=== PATIENT | male | born 1945 | race Caucasian/White ===

== ENCOUNTER 2017-07-16 09:16 | Observation (INO) ==
[2017-07-16] MEDS ORDERED: Ipratropium/Albuterol Neb 3 ML IH ONE (09:19)
[2017-07-16] MEDS ORDERED: methylPREDNISolone 125 MG/2 ML VIAL IVP ONE (09:20)
[2017-07-16] MEDS ORDERED: Azithromycin 500 MG in D5% in Water 250 ML IVPB ONE (09:20)
[2017-07-16] MEDS ORDERED: 0.9 % Sodium Chloride 1,000 ML IVC SCH ×2 (09:30→12:51)
--- NOTE | 2017-07-16 09:33 | Emergency Department Note ---
Disposition Clinical Impression: Mucopurulent chronic bronchitis, COPD (chronic obstructive pulmonary disease) Disposition: Admitted As Inpatient Condition: Fair Time of Disposition: 10:39 (manuel fonseca ) URI/Sore Throat HPI - General Chief Complaint: ED Upper Respiratory Infection Stated Complaint: cold sxs x week, sob, prod cough Time Seen by Provider: 07/16/17 09:18 Source: patient, family Mode of arrival: ambulatory Limitations: no limitations Nursing Notes Reviewed: Yes Vital Signs Reviewed: Yes - History of Present Illness HPI Narrative: Upper respiratory type symptoms for a week has been on Levaquin with no relief patient's having cough congestion shortness of breath abdominal bloating denies though any vomiting or any diarrhea he said seen his family physician denies any blurred vision double vision diarrhea numbness tingling weakness recent weight gain or weight loss all systems reviewed and otherwise negative Pt Subjective Complaint: fever, cough, flu symptoms, nasal congestion, other ( sputum) Duration: constant, gradually worsening Severity: moderate Severity scale (1-10): 7 Improves with: nothing Worsens with: nothing If sputum, description: watery, yellow Associated symptoms: Reports: fever, rhinorrhea, nasal congestion, sore throat, cough, shortness of breath. Denies: chills, voice changes, myalgias, diaphoresis, headache, stiff neck, chest pain, abdominal pain, nausea, vomiting , diarrhea, dysuria, rash, epistaxis, ear pain Treatments prior to arrival: acetaminophen, ibuprofen, antibiotics, other healthcare encounter for this problem - Related Data Home Medications Medication Instructions Recorded Confirmed Losartan [Cozaar] 12.5 mg PO DAILY 07/16/17 07/16/17 Omeprazole [PriLOSEC] 20 mg PO DAILY 07/16/17 07/16/17 Tamsulosin [Flomax] 0.4 mg PO DAILY 07/16/17 07/16/17 levoFLOXacin [Levaquin] 500 mg PO DAILY 07/16/17 07/16/17 Allergies Allergy/AdvReac Type Severity Reaction Status Date / Time No Known Allergies Allergy Verified 07/16/17 09:17 All systems ED: reviewed and negative except as stated. Review of Systems: As Per HPI Constitutional: Reports: weakness. Denies: fever, chills, weight change Eyes: Denies: eye pain, eye discharge ENT ED: Reports: throat pain, congestion. Denies: ear pain, dental pain Cardiovascular: Reports: dyspnea on exertion. Denies: chest pain, palpitations Respiratory: Reports: cough, dyspnea, wheezes, sputum production Gastrointestinal: Denies: abdominal pain, nausea, vomiting Genitourinary: Denies: dysuria, frequency Musculoskeletal: Reports: myalgia. Denies: back pain, neck pain Integumentary: Denies: rash, abrasion, lesions Neurological: Denies: headache, weakness Psychiatric: Denies: anxiety Endocrine: Denies: fatigue Hematological/Lymphatic: Denies: easy bleeding Allergic/Immunologic: Denies: facial swelling URI PMH - Past Medical History Medical history: Reports: COPD Physical Exam - General Limitations: no limitations General appearance: alert, in no apparent distress, anxious - Head Head exam: atraumatic, normocephalic, normal inspection - Eye Eye exam: Present: normal appearance, PERRL, EOMI - ENT ENT exam: normal exam, normal oropharynx, mucous membranes moist, TM's normal bilaterally, normal external ear exam, other (PND) - Neck Neck exam: Present: normal inspection, full ROM, trachea midline - Chest Chest inspection: Present: normal inspection, symmetric chest wall rise - Respiratory Respiratory exam: Present: wheezes, prolonged expiratory phase - Cardiovascular Cardiovascular exam: Present: regular rate, normal rhythm, normal heart sounds - Abdominal Exam Abdominal exam: Present: soft, Non-Tender, distention, normal bowel sounds. Absent: mass, pulsatile mass - Extremities Exam Extremities exam: Present: normal inspection, full ROM, normal capillary refill. Absent: tenderness, pedal edema, joint swelling, calf tenderness - Expanded Lower Extremity Exam Neurovascular/Tendon exam: Present: normal capillary refill, normal fine/light touch Gait: observed and normal - Back Exam Back exam: Present: normal inspection, full ROM. Absent: muscle spasm - Neurological Exam Neurological exam: Present: alert, oriented X3, CN II-XII intact, normal gait - Psychiatric Psychiatric exam: Present: normal affect, normal mood - Skin Skin exam: Present: warm, dry, intact, normal color Course Course Narrative: Seen and examined IV established antibiotic started with steroids given a DuoNeb breathing treatment 2 chest x-ray and labs patient it does appear to be bloated and this is most likely from his breathing or swallowing air no vomiting no abdominal pain or discomfort awaiting results suspect underlying pneumonia most likely viral currently being treated with one with outpatient failure - Reevaluation(s) Reevaluation #1: CT shows a lot of 3 within the esophagus despite the fact that he has had surgical procedure and also shows a lot of mucopurulent production within the lung cosby which is consistent with a partially treated pneumonia patient be admitted for observation services Dr. Koch patient improved slightly after breathing treatment and she felt like vomiting because of the thick secretions Upper Respiratory Infection - Differential Diagnosis Differential Diagnosis: Likely: upper respiratory infection, other viral infection, bronchitis, influenza, pneumonia - Medical Records Medical records reviewed: Yes I reviewed the patient's medical records. - Lab Data Lab results reviewed: Yes I reviewed the patient's lab results. - Radiology Data Radiology results reviewed: Yes I reviewed the patient's radiology results. - EKG Data EKG attestation: Yes I reviewed and interpreted this EKG. EKG results narrative: Sinus rhythm with arrhythmia rate 76 OH 153 QRS 93 QT 386 [place] IV Critical Care Time Critical Care Time: No
[2017-07-16 09:45] LABS: Basophils % 0.3 %; Eosinophils % 0.3 %; Hematocrit 40.1 % (37.5-50.1); Hemoglobin 13.6 g/dL (12.9-16.9); Immature Granulocytes % 0.4 % (0-4); Lymphocytes # 2.9 K/mcL (0.6-4.6); Mean Corpuscular HGB Conc 33.9 g/dL (31.6-35.5); Mean Corpuscular Hemoglobin 29.6 pg (28.0-33.3); Mean Corpuscular Volume 87.4 fL (83.0-100.0); Mean Platelet Volume 9.5 fL (9.4-12.4); Monocytes # 0.8 K/mcL (0.0-1.3); Monocytes % 10.9 %; Neutrophils # 3.2 K/mcL (1.6-8.9); Platelet Count 147 K/mcL (140-400); Red Blood Count 4.59 M/mcL (4.19-5.50); Red Cell Distribution Width 13.1 % (11.5-14.5); Segmented Neutrophils % 46.1 %
[2017-07-16 09:58] LABS: INR 1.1; Prothrombin Time 11.4 Seconds (9.4-12.1)
[2017-07-16 10:03] LABS: Alanine Aminotransferase 20 Units/L (7-52); Albumin 3.7 g/dL (3.5-5.7); Albumin/Globulin Ratio 1.8 (1.1-2.2); Alkaline Phosphatase 46 Units/L (34-104); Aspartate Amino Transferase 22 Units/L (13-39); BUN/Creatinine Ratio 24 (6-26); Bilirubin,Total 0.5 mg/dL (0.3-1.0); Blood Urea Nitrogen 23 mg/dL (8-23); Calcium 8.6 mg/dL (8.6-10.3); Carbon Dioxide 26 mEq/L (23-29); Chloride 106 mEq/L (98-107); Globulin 2.1 g/dL (2.4-3.5); Glucose 87 mg/dL (70-105); Osmolality,Calculated 293 (280-300); Potassium 3.2 mEq/L (3.5-5.1); Sodium 140 mEq/L (136-145); Total Protein 5.8 g/dL (6.4-8.9); eGFR For African Americans > 60 (> 60); eGFR For Non-African Americans > 60 (> 60)
[2017-07-16] MEDS ORDERED: Ondansetron 4 MG/2 ML VIAL IVP ONE (10:38)
[2017-07-16] MEDS ORDERED: *HR* Promethazine 25 MG/ML VIAL IVP ONE (10:38)
[2017-07-16] MEDS ORDERED: Naloxone 0.4 MG/ML INJ IVP PRN (12:51)
[2017-07-16] MEDS: Albuterol 2.5 MG/3 ML NEBULIZER IH PRN ×3 (13:06→20:36)
[2017-07-16] MEDS: traMADol 50 MG TABLET PO PRN (16:20)
--- NOTE | 2017-07-16 18:55 | Internal Med History&Physical ---
Date of Encounter: 07/16/17 Time of Encounter: 18:25 Assessment and Plan (1) COPD (chronic obstructive pulmonary disease) Current visit: Yes Status: Acute He has been started on Rocephin and Zithromax. I will add lactobacillus and Solu-Medrol. Qualifiers: COPD type: unspecified COPD Qualified Code(s): J44.9 - Chronic obstructive pulmonary disease, unspecified (2) Hypokalemia Current visit: Yes Status: Acute Give supplemental potassium and recheck labs in a.m. (3) Hypertension Current visit: Yes Status: Chronic Continue Cozaar and monitor blood pressure. Qualifiers: Hypertension type: essential hypertension Qualified Code(s): I10 - Essential (primary) hypertension Internal Medicine - H&P: HPI Chief complaint: Cough and dyspnea Admitted From: Emergency Dept Plans for Post Hospital Care: Home History of present illness: Mr. Patricia is a 71 year old male who came to emergency room stating he had not improved on outpatient treatment prescribed July 14 for cough with dyspnea. He saw his PCP Dr. Chaparro 07/14/2017 and received prescriptions for Levaquin and prednisone. He was evaluated in emergency room and felt to have exacerbation of COPD with bronchitis and possible pneumonia. He was admitted to [facility] floor for ongoing care needs. His respiratory history significant for having smoked since age 12 up to 2 packs per day. He states he has been diagnosed with emphysema but has not had PFTs. He does not use home oxygen. Reports having a negative PRETTY workup in the past. Past Med Surg Social Fam HX - Past Medical History Medical history: COPD Psychiatric history: no psych history - Social History Smoking Status: Current every day smoker Alcohol use: none Drug use: none - Family History Mother History Unknown: Yes Internal Medicine - H&P: Meds Losartan [Cozaar] 12.5 mg PO DAILY 07/16/17 [History] Omeprazole [PriLOSEC] 20 mg PO DAILY 07/16/17 [History] Tamsulosin [Flomax] 0.4 mg PO DAILY 07/16/17 [History] levoFLOXacin [Levaquin] 500 mg PO DAILY 07/16/17 [History] 3 Allergy/AdvReac Type Severity Reaction Status Date / Time No Known Allergies Allergy Verified 07/16/17 09:17 All Systems PM: A 10-system review of systems was performed and is negative for pertinent findings except as documented above in the HPI. Review of systems: Gen.: He states his weight has been stable the past few months Cardiovascular: He has history of hypertension but denies MA heart failure angina DVT or pulmonary embolus Respiratory: As per history of present illness GI: He has GERD and history of hiatal hernia. He denies disorders of his liver gallbladder or exocrine pancreas : Denies hematuria dysuria or kidney stones. He has BPH Neurologic: He denies large distribution strokes or seizures. Endocrine: He has hyperlipidemia but does not take medication at this time. He denies diabetes or thyroid disease Hematology/oncology: Denies blood disorders cancers or anemia Psychiatric: He has history of depression but has not taken medication for several years. He denies other mental health disorders [place] skeletal: He has history of gout but denies significant DJD or other bone joint or muscle disorders. - Constitutional Vitals: Temp Pulse Resp BP Pulse Ox 98.5 F 77 21 150/82 97 07/16/17 15:48 07/16/17 15:48 07/16/17 16:28 07/16/17 15:48 07/16/17 16:28 Exam: Gen.: He is a well-developed well-nourished male lying in bed who appears slightly dyspneic at rest HEENT: Head is atraumatic and normocephalic. Eyes: EOMI. There is no scleral icterus. Mouth: Mucosa is moist. Neck: Supple and nontender. There is no thyromegaly or adenopathy noted. Heart: Regular without murmurs gallops or ectopics Lungs: He has prolonged expiratory phase with very mild diffuse wheezing. No inspiratory crackles are heard. Abdomen: Soft and nontender. No masses or guarding are noted. Extremities: There is no cyanosis edema or clubbing noted. Dorsalis pedis and posttibial pulses are 1-2 over 2 bilaterally. Neurologic: Mental status: He is talkative and a good historian. Cranial nerves : Smile is symmetric. Forehead wrinkles bilaterally. Tongue protrudes midline. EOMI. Motor: There is no pronator drift. Cerebellar: finger to nose is intact bilaterally. Skin: Warm and dry Internal Med - H&P Results - Labs CBC & Chem 7: 07/16/17 09:40 07/16/17 09:40
[2017-07-16] MEDS: Budesonide/Formoterol 160/4.5 MDI IH SCH ×2 (20:36→21:06)
[2017-07-16] MEDS: methylPREDNISolone 125 MG/2 ML VIAL IVP SCH (22:12)
[2017-07-16] MEDS: Lactobacillus 1 EACH CAP.SPRINK PO SCH (22:12)
[2017-07-17] MEDS: Albuterol 2.5 MG/3 ML NEBULIZER IH PRN ×4 (01:15→20:47)
[2017-07-17] MEDS: traMADol 50 MG TABLET PO PRN (02:41)
[2017-07-17 06:11] LABS: Hematocrit 36.3 % (37.5-50.1); Hemoglobin 12.3 g/dL (12.9-16.9); Immature Granulocytes % 0.4 % (0-4); Lymphocytes # 1.2 K/mcL (0.6-4.6); Mean Corpuscular HGB Conc 33.9 g/dL (31.6-35.5); Mean Corpuscular Hemoglobin 29.7 pg (28.0-33.3); Mean Corpuscular Volume 87.7 fL (83.0-100.0); Mean Platelet Volume 9.9 fL (9.4-12.4); Monocytes # 0.1 K/mcL (0.0-1.3); Monocytes % 2.3 %; Neutrophils # 3.5 K/mcL (1.6-8.9); Platelet Count 142 K/mcL (140-400); Red Blood Count 4.14 M/mcL (4.19-5.50); Red Cell Distribution Width 13.2 % (11.5-14.5); Segmented Neutrophils % 72.3 %
[2017-07-17] MEDS: methylPREDNISolone 125 MG/2 ML VIAL IVP SCH ×3 (06:37→23:02)
[2017-07-17] MEDS: Lactobacillus 1 EACH CAP.SPRINK PO SCH ×2 (08:45→23:01)
[2017-07-17] MEDS: Azithromycin 500 MG in D5% in Water 250 ML IVPB SCH (08:46)
[2017-07-17] MEDS: cefTRIAXone 1,000 MG in Water for inj. (sterile) 20 ML 10 ML IVP SCH (08:46)
[2017-07-17] MEDS: Budesonide/Formoterol 160/4.5 MDI IH SCH ×2 (10:07→20:50)
[2017-07-17 10:22] LABS: BUN/Creatinine Ratio 22 (6-26); Blood Urea Nitrogen 23 mg/dL (8-23); Calcium 8.6 mg/dL (8.6-10.3); Carbon Dioxide 26 mEq/L (23-29); Chloride 108 mEq/L (98-107); Glucose 147 mg/dL (70-105); Osmolality,Calculated 300 (280-300); Potassium 4.2 mEq/L (3.5-5.1); Sodium 142 mEq/L (136-145); eGFR For African Americans > 60 (> 60); eGFR For Non-African Americans > 60 (> 60)
--- NOTE | 2017-07-17 10:47 | Internal Med Progress Note ---
Date of Encounter: 07/17/17 Time of Encounter: 10:35 - Assessment and plan (1) COPD (chronic obstructive pulmonary disease) Current Visit: Yes Status: Acute Assessment and plan: July 15. Continue Rocephin, Zithromax, Solu-Medrol, Symbicort, and Singulair. Anticipate discharge home tomorrow if stable. Qualifiers: COPD type: unspecified COPD Qualified Code(s): J44.9 - Chronic obstructive pulmonary disease, unspecified (2) Hypokalemia Current Visit: Yes Status: Acute Assessment and plan: July 17. Now normal. We will discontinue potassium supplementation. (3) Hypertension Current Visit: Yes Status: Chronic Assessment and plan: July 17. Continue Cozaar. Qualifiers: Hypertension type: essential hypertension Qualified Code(s): I10 - Essential (primary) hypertension - Subjective Interval history: July 17. He has no new complaints. He does not feel his breathing has significantly improved. - Constitutional Vitals: Temp Pulse Resp BP Pulse Ox 97.9 F 89 20 152/74 96 07/17/17 10:12 07/17/17 10:12 07/17/17 10:12 07/17/17 10:12 07/17/17 10:12 Exam: He has prolonged expiratory phase but no significant wheezing. His heart is regular without murmurs gallops or ectopics. His affect is bright and cheerful. I reviewed his medications and lab results. Internal Medicine: Result - Labs CBC & Chem 7: 07/17/17 05:15 07/17/17 05:15 Labs: Short CBC 07/17/17 Range/Units 05:15 WBC 4.8 (4.3-11.1) K/mcL Hgb 12.3 L (12.9-16.9) g/dL Hct 36.3 L (37.5-50.1) % Plt Count 142 (140-400) K/mcL Neutrophils # 3.5 (1.6-8.9) K/mcL BMP 07/17/17 05:15 Sodium 142 Potassium 4.2 D Chloride 108 H Carbon Dioxide 26 BUN 23 Creatinine 1.03 Glucose 147 H Calcium 8.6 - ABG Interpretation ABG results: PT/INR, D-dimer PT 11.4 Seconds (9.4-12.1) 07/16/17 09:40 Consult Discharge Plan - Plan Referrals: Hilario Chaparro DO [Primary Care Provider] - 1 week
[2017-07-18 04:52] LABS: Basophils % 0.2 %; Hematocrit 38.9 % (37.5-50.1); Hemoglobin 12.5 g/dL (12.9-16.9); Immature Granulocytes % 0.5 % (0-4); Lymphocytes # 1.7 K/mcL (0.6-4.6); Lymphocytes % 15.7 %; Mean Corpuscular HGB Conc 32.1 g/dL (31.6-35.5); Mean Corpuscular Hemoglobin 29.6 pg (28.0-33.3); Monocytes # 0.3 K/mcL (0.0-1.3); Monocytes % 2.5 %; Neutrophils # 8.8 K/mcL (1.6-8.9); Platelet Count 153 K/mcL (140-400); Red Blood Count 4.23 M/mcL (4.19-5.50); Red Cell Distribution Width 13.5 % (11.5-14.5); Segmented Neutrophils % 81.1 %
[2017-07-18 05:10] LABS: BUN/Creatinine Ratio 30 (6-26); Blood Urea Nitrogen 31 mg/dL (8-23); Calcium 8.7 mg/dL (8.6-10.3); Carbon Dioxide 23 mEq/L (23-29); Chloride 109 mEq/L (98-107); Glucose 131 mg/dL (70-105); Osmolality,Calculated 298 (280-300); Potassium 4.4 mEq/L (3.5-5.1); Sodium 140 mEq/L (136-145); eGFR For African Americans > 60 (> 60); eGFR For Non-African Americans > 60 (> 60)
[2017-07-18] MEDS: methylPREDNISolone 125 MG/2 ML VIAL IVP SCH (06:18)
[2017-07-18] MEDS: Lactobacillus 1 EACH CAP.SPRINK PO SCH (08:59)
[2017-07-18] MEDS: cefTRIAXone 1,000 MG in Water for inj. (sterile) 20 ML 10 ML IVP SCH (08:59)
[2017-07-18] MEDS: Azithromycin 500 MG in D5% in Water 250 ML IVPB SCH (09:00)
--- NOTE | 2017-07-18 10:27 | Discharge Summary ---
Date of Encounter: 07/18/17 Time of Encounter: 10:20 - Discharge Diagnosis (1) COPD (chronic obstructive pulmonary disease) Priority: Primary Status: Acute Qualifiers: COPD type: unspecified COPD Qualified Code(s): J44.9 - Chronic obstructive pulmonary disease, unspecified (2) Hypokalemia Priority: Secondary Status: Resolved (3) Hypertension Priority: Secondary Status: Chronic Qualifiers: Hypertension type: essential hypertension Qualified Code(s): I10 - Essential (primary) hypertension - Discharge Medications Home Medications: Losartan [Cozaar] 12.5 mg PO DAILY 07/16/17 [History] Omeprazole [PriLOSEC] 20 mg PO DAILY 07/16/17 [History] Tamsulosin [Flomax] 0.4 mg PO DAILY 07/16/17 [History] levoFLOXacin [Levaquin] 500 mg PO DAILY 07/16/17 [History] Allergies/Adverse Reactions: 3 Allergy/AdvReac Type Severity Reaction Status Date / Time No Known Allergies Allergy Verified 07/16/17 09:17 Date of admission: 07/16/17 11:28 Primary care physician: Hilario Chaparro DO - Patient Status Disposition: Home, Self-Care Condition: Fair Overall status at discharge: patient is progressing back to baseline - Discharge Instructions Follow Up With: Hilario Chaparro DO [Primary Care Provider] - 1 week - Diet and Activity Activity: resume usual activities as tolerated Diet: advance to your usual diet Hospital course: Mr. Patricia is a 71 year old male who came to emergency room stating he had not improved on outpatient treatment prescribed July 14 for cough with dyspnea. He saw his PCP Dr. Chaparro 07/14/2017 and received prescriptions for Levaquin and prednisone. He was evaluated in emergency room and felt to have exacerbation of COPD with bronchitis and possible pneumonia. He was admitted to [facility] floor for ongoing care needs. Initial orders were written by the emergency room physician. I saw him on July 16 and performed the history and physical. He was started empirically on Rocephin and Zithromax with lactobacillus and Solu-Medrol. His dyspnea showed slight improvement during his hospital stay. He remained afebrile. I ordered chest CT to further evaluate. There were mild groundglass opacities in the posterior lung bases reflecting atelectasis versus mild airspace disease or pulmonary edema. There was a 6.4 mm nodule along the upper aspect of the left major fissure possibly representing focal area of scarring. It was recommended repeat CT be done in 6-[address] Chaparro can order this. Supplement potassium was given and hypokalemia resolved. On July 18 I felt he was stable for discharge home. He will follow with his PCP Dr. Chaparro within 1 week. He will continue the Levaquin and prednisone prescribed by Dr. Chaparro prior to admission. Room air oximetry will be checked on a 6 minute walk prior to discharge. I strongly encouraged him to become a nonsmoker. - Time Spent with Patient Total time spent providing and/or coordinating discharge services: - Constitutional Vitals: Temp Pulse Resp BP Pulse Ox 98.3 F 66 16 166/81 97 07/18/17 07:40 07/18/17 07:40 07/18/17 07:40 07/18/17 07:40 07/18/17 07:40
[2017-07-18] MEDS: Budesonide/Formoterol 160/4.5 MDI IH SCH (10:48)
[2017-07-18 11:45] VITALS: BP 184/85
--- NOTE | 2017-07-19 07:54 | Electrocardiograph Report ---
[address] [place], [place] [address] Test Date: 2017-07-16 Pat Name: Singh Patricia Department: [id number] Room: [facility] Gender: M [employer]: [id number] : 1945 Requested By: Taylor Wasserman Order Number: [id number] Reading MD: Aleksandar Chicas MD Measurements Intervals [place] Rate: 76 P: 70 AR: 153 QRS: 14 QRSD: 93 T: 58 QT: 386 QTc: 416 Interpretive Statements SINUS RHYTHM WITH SINUS ARRHYTHMIA = Electronically Signed On 07-19-2017 6:18:59 EST by Aleksandar Chicas MD
== END 2017-07-18 12:19 | disposition home or self-care (01) ==
LOC: EMEROOPIK 09:16 → INPPIK 09:16
PROVIDERS: ADMIT Internal Medicine; ATTEND Internal Medicine

== ENCOUNTER 2021-01-12 10:57 | Inpatient (IN) ==
[2021-01-12] MEDS ORDERED: Nitroglycerin 0.4 MG TAB.SUBL SL PRN (16:40)
[2021-01-12] MEDS: levoFLOXacin 750 MG TABLET PO SCH (18:58)
[2021-01-12] MEDS: *HR* HYDROcodone/Acet 5/325 mg TABLET PO PRN (19:34)
[2021-01-12] MEDS: Budesonide/Formoterol 160/4.5 1 PUFF INH IH SCH (20:52)
[2021-01-12] MEDS: FLUoxetine HCl 10 MG CAPSULE PO SCH (20:59)
[2021-01-12] MEDS: Gabapentin 100 MG CAPSULE PO SCH (20:59)
[2021-01-13] MEDS: *HR* HYDROcodone/Acet 5/325 mg TABLET PO PRN ×3 (04:16→21:46)
[2021-01-13 07:22] LABS: Hematocrit 25.2 % (37.5-50.1); Hemoglobin 8.2 g/dL (12.9-16.9); Mean Corpuscular HGB Conc 32.5 g/dL (31.6-35.5); Mean Corpuscular Hemoglobin 30.6 pg (28.0-33.3); Mean Platelet Volume 9.3 fL (9.4-12.4); Platelet Count 201 K/mcL (140-400); Red Blood Count 2.68 M/mcL (4.19-5.50); Red Cell Distribution Width 15.8 % (11.5-14.5); White Blood Count 15.1 K/mcL (4.3-11.1)
[2021-01-13 07:40] LABS: Calcium 8.6 mg/dL (8.6-10.3); Potassium 4.3 mEq/L (3.5-5.1)
[2021-01-13] MEDS: Aspirin 81 MG TAB.CHEW PO SCH (09:05)
[2021-01-13] MEDS: Metoprolol XL (24 HR) Succ 25 MG TAB.ER.24H PO SCH (09:05)
[2021-01-13] MEDS: predniSONE 10 MG TABLET PO SCH (09:05)
[2021-01-13] MEDS: Gabapentin 100 MG CAPSULE PO SCH ×3 (09:06→21:47)
[2021-01-13] MEDS: Furosemide 20 MG TABLET PO SCH (09:06)
[2021-01-13] MEDS: Budesonide/Formoterol 160/4.5 1 PUFF INH IH SCH ×2 (10:20→21:21)
[2021-01-13] MEDS: *HR* OxyCODONE Immed Rel 5 MG TABLET PO PRN (15:02)
[2021-01-13] MEDS: FLUoxetine HCl 10 MG CAPSULE PO SCH (21:47)
[2021-01-14] MEDS: Budesonide/Formoterol 160/4.5 1 PUFF INH IH SCH ×2 (07:54→21:14)
[2021-01-14] MEDS: *HR* HYDROcodone/Acet 5/325 mg TABLET PO PRN ×2 (10:11→18:01)
[2021-01-14] MEDS: Gabapentin 100 MG CAPSULE PO SCH ×3 (10:11→20:27)
[2021-01-14] MEDS ORDERED: Furosemide 20 MG/2 ML VIAL IVP ONE (10:11)
[2021-01-14] MEDS: predniSONE 10 MG TABLET PO SCH (10:15)
[2021-01-14] MEDS: Metoprolol XL (24 HR) Succ 25 MG TAB.ER.24H PO SCH (10:15)
[2021-01-14] MEDS: Aspirin 81 MG TAB.CHEW PO SCH (10:15)
[2021-01-14] MEDS: Furosemide 20 MG TABLET PO SCH (10:19)
[2021-01-14] MEDS: Albuterol 2.5 MG/3 ML NEBULIZER IH PRN (10:20)
[2021-01-14] MEDS: *HR* OxyCODONE Immed Rel 5 MG TABLET PO PRN (13:02)
[2021-01-14] MEDS: levoFLOXacin 750 MG TABLET PO SCH (18:01)
[2021-01-14] MEDS: FLUoxetine HCl 10 MG CAPSULE PO SCH (20:27)
[2021-01-15] MEDS: Budesonide/Formoterol 160/4.5 1 PUFF INH IH SCH ×2 (08:10→21:32)
[2021-01-15] MEDS: Albuterol 2.5 MG/3 ML NEBULIZER IH PRN (08:10)
[2021-01-15] MEDS: predniSONE 10 MG TABLET PO SCH (08:48)
[2021-01-15] MEDS: Aspirin 81 MG TAB.CHEW PO SCH (08:48)
[2021-01-15] MEDS: Furosemide 20 MG TABLET PO SCH (08:49)
[2021-01-15] MEDS: Gabapentin 100 MG CAPSULE PO SCH ×3 (08:49→20:16)
[2021-01-15] MEDS: Metoprolol XL (24 HR) Succ 25 MG TAB.ER.24H PO SCH (08:49)
[2021-01-15] MEDS: *HR* HYDROcodone/Acet 5/325 mg TABLET PO PRN ×2 (08:50→20:16)
[2021-01-15] MEDS: *HR* OxyCODONE Immed Rel 5 MG TABLET PO PRN (10:24)
[2021-01-15] MEDS: FLUoxetine HCl 10 MG CAPSULE PO SCH (20:16)
[2021-01-16] MEDS: Furosemide 20 MG TABLET PO SCH (08:35)
[2021-01-16] MEDS: predniSONE 20 MG TABLET PO SCH (08:35)
[2021-01-16] MEDS: Aspirin 81 MG TAB.CHEW PO SCH (08:35)
[2021-01-16] MEDS: *HR* HYDROcodone/Acet 5/325 mg TABLET PO PRN ×2 (08:46→19:52)
[2021-01-16] MEDS: Metoprolol XL (24 HR) Succ 25 MG TAB.ER.24H PO SCH (08:46)
[2021-01-16] MEDS: Gabapentin 100 MG CAPSULE PO SCH ×3 (08:46→19:52)
[2021-01-16] MEDS: Budesonide/Formoterol 160/4.5 1 PUFF INH IH SCH ×2 (10:33→19:57)
[2021-01-16] MEDS: levoFLOXacin 750 MG TABLET PO SCH (16:57)
[2021-01-16] MEDS: FLUoxetine HCl 10 MG CAPSULE PO SCH (19:52)
[2021-01-17] MEDS: Budesonide/Formoterol 160/4.5 1 PUFF INH IH SCH ×2 (07:36→20:09)
[2021-01-17] MEDS: Furosemide 20 MG TABLET PO SCH (09:42)
[2021-01-17] MEDS: Gabapentin 100 MG CAPSULE PO SCH ×3 (09:42→19:59)
[2021-01-17] MEDS: *HR* HYDROcodone/Acet 5/325 mg TABLET PO PRN ×2 (09:42→19:58)
[2021-01-17] MEDS: predniSONE 20 MG TABLET PO SCH (09:45)
[2021-01-17] MEDS: Metoprolol XL (24 HR) Succ 25 MG TAB.ER.24H PO SCH (09:46)
[2021-01-17] MEDS: Aspirin 81 MG TAB.CHEW PO SCH (09:46)
[2021-01-17] MEDS: *HR* OxyCODONE Immed Rel 5 MG TABLET PO PRN (11:31)
[2021-01-17] MEDS: FLUoxetine HCl 10 MG CAPSULE PO SCH (19:58)
[2021-01-18 08:05] LABS: Hematocrit 32.2 % (37.5-50.1); Hemoglobin 10.3 g/dL (12.9-16.9); Lymphocytes # 2.3 K/mcL (0.6-4.6); Mean Corpuscular Hemoglobin 30.5 pg (28.0-33.3); Mean Corpuscular Volume 95.3 fL (83.0-100.0); Mean Platelet Volume 9.2 fL (9.4-12.4); Platelet Count 264 K/mcL (140-400); Red Blood Count 3.38 M/mcL (4.19-5.50); Red Cell Distribution Width 16.2 % (11.5-14.5); White Blood Count 19.3 K/mcL (4.3-11.1)
[2021-01-18 08:21] LABS: Calcium 8.6 mg/dL (8.6-10.3); Monocytes # 1.5 K/mcL (0.0-1.3); Neutrophils # 15.4 K/mcL (1.6-8.9); Potassium 4.4 mEq/L (3.5-5.1)
[2021-01-18 08:22] LABS: Platelet Estimate Normal (Normal)
[2021-01-18] MEDS: predniSONE 20 MG TABLET PO SCH (08:35)
[2021-01-18] MEDS: Metoprolol XL (24 HR) Succ 25 MG TAB.ER.24H PO SCH (08:36)
[2021-01-18] MEDS: Furosemide 20 MG TABLET PO SCH (08:36)
[2021-01-18] MEDS: Aspirin 81 MG TAB.CHEW PO SCH (08:36)
[2021-01-18] MEDS: Gabapentin 100 MG CAPSULE PO SCH ×3 (08:36→20:55)
[2021-01-18] MEDS: *HR* HYDROcodone/Acet 5/325 mg TABLET PO PRN (08:42)
[2021-01-18] MEDS: Budesonide/Formoterol 160/4.5 1 PUFF INH IH SCH ×2 (11:13→21:29)
[2021-01-18] MEDS: *HR* OxyCODONE Immed Rel 5 MG TABLET PO PRN ×2 (11:56→20:54)
[2021-01-18] MEDS: FLUoxetine HCl 10 MG CAPSULE PO SCH (20:55)
[2021-01-19] MEDS: predniSONE 20 MG TABLET PO SCH (08:18)
[2021-01-19] MEDS: Aspirin 81 MG TAB.CHEW PO SCH (08:19)
[2021-01-19] MEDS: Metoprolol XL (24 HR) Succ 25 MG TAB.ER.24H PO SCH (08:19)
[2021-01-19] MEDS: Furosemide 20 MG TABLET PO SCH (08:19)
[2021-01-19] MEDS: Gabapentin 100 MG CAPSULE PO SCH ×3 (08:19→20:58)
[2021-01-19] MEDS: Budesonide/Formoterol 160/4.5 1 PUFF INH IH SCH ×2 (08:31→21:50)
[2021-01-19] MEDS: Albuterol 2.5 MG/3 ML NEBULIZER IH PRN (08:31)
[2021-01-19] MEDS: *HR* OxyCODONE Immed Rel 5 MG TABLET PO PRN ×2 (09:13→20:57)
[2021-01-19] MEDS: FLUoxetine HCl 10 MG CAPSULE PO SCH (20:58)
[2021-01-20] MEDS: Gabapentin 100 MG CAPSULE PO SCH ×3 (07:57→20:24)
[2021-01-20] MEDS: Aspirin 81 MG TAB.CHEW PO SCH (07:57)
[2021-01-20] MEDS: *HR* HYDROcodone/Acet 5/325 mg TABLET PO PRN ×2 (07:57→14:35)
[2021-01-20] MEDS: predniSONE 20 MG TABLET PO SCH (07:58)
[2021-01-20] MEDS: Metoprolol XL (24 HR) Succ 25 MG TAB.ER.24H PO SCH (07:58)
[2021-01-20] MEDS: Furosemide 20 MG TABLET PO SCH (07:59)
[2021-01-20] MEDS: Budesonide/Formoterol 160/4.5 1 PUFF INH IH SCH ×2 (09:02→22:43)
[2021-01-20 13:51] LABS: Folate 8.4 ng/mL (3.0-16.0)
[2021-01-20] MEDS: Simethicone 80 MG TAB.CHEW PO PRN ×2 (14:06→18:32)
[2021-01-20] MEDS: *HR* OxyCODONE Immed Rel 5 MG TABLET PO PRN (20:23)
[2021-01-20] MEDS: FLUoxetine HCl 10 MG CAPSULE PO SCH (20:24)
[2021-01-21] MEDS: *HR* OxyCODONE Immed Rel 5 MG TABLET PO PRN (03:49)
[2021-01-21] MEDS: Aspirin 81 MG TAB.CHEW PO SCH (08:09)
[2021-01-21] MEDS: predniSONE 20 MG TABLET PO SCH (08:09)
[2021-01-21] MEDS: Gabapentin 100 MG CAPSULE PO SCH ×3 (08:09→21:28)
[2021-01-21] MEDS: Metoprolol XL (24 HR) Succ 25 MG TAB.ER.24H PO SCH (08:09)
[2021-01-21] MEDS: *HR* HYDROcodone/Acet 5/325 mg TABLET PO PRN ×2 (08:09→21:29)
[2021-01-21] MEDS: Furosemide 20 MG TABLET PO SCH (08:09)
[2021-01-21] MEDS: Budesonide/Formoterol 160/4.5 1 PUFF INH IH SCH ×2 (08:28→23:22)
[2021-01-21] MEDS: Albuterol 2.5 MG/3 ML NEBULIZER IH PRN (16:29)
[2021-01-21] MEDS: Acetylcysteine 10% 10 ML VIAL IH SCH ×2 (16:29→23:20)
[2021-01-21] MEDS: FLUoxetine HCl 10 MG CAPSULE PO SCH (21:28)
[2021-01-22] MEDS: Budesonide/Formoterol 160/4.5 1 PUFF INH IH SCH ×2 (08:16→23:05)
[2021-01-22] MEDS: Albuterol 2.5 MG/3 ML NEBULIZER IH PRN ×3 (08:17→23:05)
[2021-01-22] MEDS: Acetylcysteine 10% 10 ML VIAL IH SCH ×3 (08:17→23:05)
[2021-01-22] MEDS: predniSONE 20 MG TABLET PO SCH (10:12)
[2021-01-22] MEDS: Aspirin 81 MG TAB.CHEW PO SCH (10:12)
[2021-01-22] MEDS: Furosemide 20 MG TABLET PO SCH (10:13)
[2021-01-22] MEDS: Metoprolol XL (24 HR) Succ 25 MG TAB.ER.24H PO SCH (10:13)
[2021-01-22] MEDS: Gabapentin 100 MG CAPSULE PO SCH ×3 (10:13→21:30)
[2021-01-22] MEDS: *HR* OxyCODONE Immed Rel 5 MG TABLET PO PRN (17:14)
[2021-01-22] MEDS: FLUoxetine HCl 10 MG CAPSULE PO SCH (21:29)
[2021-01-22 23:39] LABS: Adenovirus F 40/41 PCR Not detected (Not detect); Astrovirus PCR Not detected (Not detect); C.difficile Toxin A/B Gene PCR Not detected (Not detect); Campylobacter by PCR Not detected (Not detect); Cryptosporidium by PCR Not detected (Not detect); Cyclospora cayetanensis PCR Not detected (Not detect); E. coli O157 by PCR Not detected (Not detect); Entamoeba histolytica PCR Not detected (Not detect); Enteroaggregative E.coli(EAEC) Not detected (Not detect); Enteropathogenic E.coli(EPEC) Not detected (Not detect); Enterotoxigenic E.coli (ETEC) Not detected (Not detect); Giardia lamblia PCR Not detected (Not detect); Norovirus GI/GII PCR Not detected (Not detect); Plesiomonas shigelloides PCR Not detected (Not detect); Rotavirus A PCR Not detected (Not detect); Salmonella PCR Not detected (Not detect); Sapovirus PCR Not detected (Not detect); Shig/EnteroinvasiveE coli EIEC Not detected (Not detect); Shigalike tox-prod E coli STEC Not detected (Not detect); Vibrio PCR Not detected (Not detect); Vibrio cholerae PCR Not detected (Not detect); Yersinia enterocolitica PCR Not detected (Not detect)
[2021-01-23] MEDS: Albuterol 2.5 MG/3 ML NEBULIZER IH PRN ×3 (07:39→23:44)
[2021-01-23] MEDS: Acetylcysteine 10% 10 ML VIAL IH SCH ×3 (07:39→23:45)
[2021-01-23] MEDS: Budesonide/Formoterol 160/4.5 1 PUFF INH IH SCH ×2 (07:39→23:44)
[2021-01-23 08:17] LABS: Basophils % 0.1 %; Hematocrit 27.3 % (37.5-50.1); Immature Granulocytes % 1.1 % (0-4); Lymphocytes % 2.3 %; Mean Corpuscular Hemoglobin 30.5 pg (28.0-33.3); Mean Corpuscular Volume 92.5 fL (83.0-100.0); Mean Platelet Volume 9.5 fL (9.4-12.4); Monocytes # 0.5 K/mcL (0.0-1.3); Monocytes % 2.5 %; Platelet Count 202 K/mcL (140-400); Red Blood Count 2.95 M/mcL (4.19-5.50); Red Cell Distribution Width 16.3 % (11.5-14.5); White Blood Count 19.3 K/mcL (4.3-11.1)
[2021-01-23 08:19] LABS: Lymphocytes # 0.4 K/mcL (0.6-4.6); Neutrophils # 18.1 K/mcL (1.6-8.9)
[2021-01-23 08:59] LABS: Calcium 8.2 mg/dL (8.6-10.3); Potassium 4.4 mEq/L (3.5-5.1)
[2021-01-23] MEDS: predniSONE 20 MG TABLET PO SCH (09:53)
[2021-01-23] MEDS: Simethicone 80 MG TAB.CHEW PO PRN (09:53)
[2021-01-23] MEDS: Aspirin 81 MG TAB.CHEW PO SCH (09:53)
[2021-01-23] MEDS: *HR* HYDROcodone/Acet 5/325 mg TABLET PO PRN ×2 (09:53→21:39)
[2021-01-23] MEDS: Gabapentin 100 MG CAPSULE PO SCH ×3 (09:53→21:38)
[2021-01-23] MEDS: Furosemide 20 MG TABLET PO SCH (09:57)
[2021-01-23] MEDS: Metoprolol XL (24 HR) Succ 25 MG TAB.ER.24H PO SCH (09:58)
[2021-01-23] MEDS ORDERED: levoFLOXacin 750 MG TABLET PO SCH ×2 (14:00)
[2021-01-23] MEDS ORDERED: Magic Mouthwash 10 ML UD Cup PO SCH (16:44)
[2021-01-23] MEDS: Magic Mouthwash 10 ML UD Cup PO SCH (17:36)
[2021-01-23] MEDS: FLUoxetine HCl 10 MG CAPSULE PO SCH (21:38)
[2021-01-24] MEDS: *HR* HYDROcodone/Acet 5/325 mg TABLET PO PRN (04:58)
[2021-01-24] MEDS: Albuterol 2.5 MG/3 ML NEBULIZER IH PRN ×2 (05:12→08:34)
[2021-01-24 06:47] VITALS: TEMP 97.7
[2021-01-24] MEDS: Acetylcysteine 10% 10 ML VIAL IH SCH (08:33)
[2021-01-24] MEDS: Budesonide/Formoterol 160/4.5 1 PUFF INH IH SCH (08:34)
[2021-01-24 09:00] LABS: Calcium 8.1 mg/dL (8.6-10.3); Potassium 4.1 mEq/L (3.5-5.1)
[2021-01-24] MEDS ORDERED: Metoprolol XL (24 HR) Succ 25 MG TAB.ER.24H PO SCH (09:00)
[2021-01-24] MEDS ORDERED: 0.9 % Sodium Chloride 1,000 ML ONE (09:22)
[2021-01-24] MEDS ORDERED: methylPREDNISolone 125 MG/2 ML VIAL IVP ONE (09:34)
[2021-01-24] MEDS ORDERED: Furosemide 20 MG/2 ML VIAL IVP ONE (09:35)
[2021-01-24 09:40] LABS: Basophils % 0.1 %; Eosinophils % 0.1 %; Hematocrit 27.6 % (37.5-50.1); Hemoglobin 8.8 g/dL (12.9-16.9); Immature Granulocytes % 0.7 % (0-4); Lymphocytes # 0.7 K/mcL (0.6-4.6); Lymphocytes % 6.6 %; Mean Corpuscular HGB Conc 31.9 g/dL (31.6-35.5); Mean Corpuscular Hemoglobin 30.1 pg (28.0-33.3); Mean Corpuscular Volume 94.5 fL (83.0-100.0); Monocytes # 0.6 K/mcL (0.0-1.3); Monocytes % 5.5 %; Neutrophils # 8.8 K/mcL (1.6-8.9); Platelet Count 197 K/mcL (140-400); Red Blood Count 2.92 M/mcL (4.19-5.50); Red Cell Distribution Width 16.5 % (11.5-14.5); White Blood Count 10.1 K/mcL (4.3-11.1)
[2021-01-24] MEDS: Albuterol 2.5 MG/3 ML NEBULIZER IH SCH ×2 (09:43→11:09)
[2021-01-24] MEDS: Gabapentin 100 MG CAPSULE PO SCH (10:25)
[2021-01-24] MEDS: *HR* OxyCODONE Immed Rel 5 MG TABLET PO PRN (10:25)
[2021-01-24] MEDS: Aspirin 81 MG TAB.CHEW PO SCH (10:25)
[2021-01-24] MEDS: Furosemide 20 MG TABLET PO SCH (10:26)
[2021-01-24] MEDS: Magic Mouthwash 10 ML UD Cup PO SCH ×2 (10:28→11:52)
[2021-01-24 10:35] VITALS: PULSE 95
[2021-01-24 10:45] LABS: ABG Base Excess -5 mEq/L (-2 to 3); ABG HCO3 22 mEq/L (21-27); ABG Oxygen Saturation 93 % (95-98); ABG PCO2 44 mmHg (35-45); ABG PO2 75 mmHg (85-104); ABG TCO2 23 mEq/L (20-26)
[2021-01-24] MEDS ORDERED: *HR* LORazepam 2 MG/ML VIAL IVP ONE (11:58)
[2021-01-24 12:22] VITALS: BP 120/70; RESP 32; O2SAT 94
== END 2021-01-24 13:10 | disposition short-term general hospital (02) | DRG 945 ==
LOC: INPPIK 18:09
PROVIDERS: ADMIT Family Medicine; ATTEND Family Medicine